=== PATIENT | female | born 1985 | race Hispanic/Latino ===

== ENCOUNTER 2017-02-23 07:16 | Emergency (ER) | payer OTHER, SELFPAY ==
--- NOTE | 2017-02-23 08:05 | EDM.PDOC ---
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 Pain tends to be quite colicky. She awoke from sleep around 0500 hrs. this morning with the pain. Associated nausea without any vomiting. No fever or chills. Denies any genitourinary complaints She is been able to drink fluids. Denies any diarrhea. No real problems with constipation. Last normal menstrual period was estimated to be around the or 16january. She does not believe she could be . Previous abdominal surgeries that of a appendectomy. Pain tends to radiate across her lower abdomen. It also is felt in both lower aspects of her back. She states similar type pain when she had her menstrual cycle last. Onset: Today Onset Date: 02/23/17 Onset Time: 05:00 Duration: Hour(s): Location: Reports: Abdomen Quality: Reports: Sharp, Stabbing Severity: Moderate Improves with: Reports: None Worsens with: Reports: None Context: Denies: Activity, Exercise, Lifting, Sick Contact, Trauma, Other Associated Symptoms: Reports: Nausea/Vomiting. 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: - Past Surgical History GI Surgical History: Reports: Appendectomy Social & Family History - Tobacco Use Smoking Status *Q: Never Smoker - Caffeine Use Caffeine Use: Reports: None - Recreational Drug Use Recreational Drug Use: No - Living Situation & Occupation Living situation: Reports: ED ROS GENERAL - Review of Systems Review Of Systems: See Below Constitutional: Reports: No Symptoms HEENT: Reports: No Symptoms Respiratory: Reports: No Symptoms Cardiovascular: Reports: No Symptoms Endocrine: Reports: No Symptoms GI/Abdominal: Reports: No Symptoms : Reports: No Symptoms Musculoskeletal: Reports: No Symptoms Skin: Reports: No Symptoms Neurological: Reports: No Symptoms Psychiatric: Reports: No Symptoms Hematologic/Lymphatic: Reports: No Symptoms Immunologic: Reports: No Symptoms ED EXAM, GI/ABD - Physical Exam Exam: See Below Exam Limited By: Language Barrier General Appearance: Alert, WD/WN, Mild Distress Eyes: Bilateral: Normal Appearance (No jaundice.) Respiratory/Chest: No Respiratory Distress, Lungs Clear, Normal Breath Sounds Cardiovascular: Normal Peripheral Pulses, Regular Rate, Rhythm, No Edema, No Gallop, No Murmur GI/Abdominal Exam: Soft, Non-Tender, No Organomegaly, No Distention, No Abnormal Bruit, No Mass, Pelvis Stable, Abnormal Bowel Sounds (Hyperactive bowel sounds in all 4 quadrants. They are almost continuous.) Back Exam: Normal Inspection, Full Range of Motion. No: CVA Tenderness (L), CVA Tenderness (R) Extremities: Normal Inspection, Normal Range of Motion, Non-Tender, No Pedal Edema Neurological: Alert, Oriented, CN II-XII Intact, Normal Cognition Psychiatric: Normal Affect, Normal Mood Skin Exam: Warm, Dry, Intact, Normal Color, No Rash Course - Vital Signs Last Recorded V/S: Last Vital Signs Temp 36.6 C 02/23/17 07:30 Pulse 84 02/23/17 07:30 Resp 15 02/23/17 07:30 BP 99/68 02/23/17 07:30 Pulse Ox 100 02/23/17 07:30 - Orders/Labs/Meds Orders: Active Orders 24 hr Category Date Time Status Abdomen 1V Flat [CR] Stat Exams 02/23/17 07:57 Taken Magnesium Citrate [Citrate of Magnesia] Med 02/23/17 08:49 Once 210 ml PO ONETIME ONE Labs: Laboratory Tests 02/23/17 02/23/17 Range/Units 07:30 07:30 Urine Color Light yellow (Yellow) Urine Appearance Clear (Clear) Urine pH 6.0 (5.0-8.0) Ur Specific [place] 1.015 (1.005-1.030) Urine Protein Negative (Negative) Urine Glucose (UA) Negative (Negative) Urine Ketones Negative (Negative) Urine Occult Blood Trace-lysed H (Negative) Urine Nitrite Negative (Negative) Urine Bilirubin Negative (Negative) Urine Urobilinogen 0.2 (0.2-1.0) Ur Leukocyte Esterase Negative (Negative) Urine RBC 0-5 (0-5) /hpf Urine WBC 0-5 (0-5) /hpf Ur Epithelial Cells 0-5 (0-5) /hpf Urine Bacteria Rare (FEW) /hpf Urine Mucus Few (FEW) /hpf Urine HCG, Qual Negative (NEGATIVE) - Radiology Interpretation Free Text/Narrative:: 31-year-old female presents the ED with acute onset of periumbilical and lower abdominal pain radiating to her lower back bilaterally. Pain is strongly and colicky. On examination soft abdomen with no peritonitis. Active bowel sounds in all 4 quadrants. Palpable right lower hemicolon. Plan KUB and urinalysis and urine when she test to be done. - Re-Assessments/Exams Free Text/Narrative Re-Assessment/Exam: 02/23/17 08:31 urinalysis shows trace of lysed RBCs. Urinalysis is negative for test. KUB to be done. 02/23/17 08:50 KUB reveals increased stool throughout both the right and left hemicolon's. This is compatible with constipation. There is a small amount of air in the small bowel central abdomen as well. No bowel obstruction. Treatment is therefore Citroma 7 ounces by mouth mixed with 5 ounces of juice of choice. This should provide bowel cleanse. If not markedly improved after bowel cleanse Departure - Departure Time of Disposition: 08:51 Disposition: Home, Self-Care 01 Condition: Fair Clinical Impression: Constipation by delayed colonic transit Abdominal pain Qualifiers: Abdominal location: periumbilical Qualified Code(s): R10.33 - Periumbilical pain - Discharge Information Referrals: PCP,None [Primary Care Provider] - Forms: ED Department Discharge Additional Instructions: Evaluation in the emergency department today in regards to sudden onset of severe generalized abdominal pain but mostly lower and periumbilical. Examination reveals a benign abdomen with no signs of anything serious. Bowel sounds were very active in all 4 quadrants. Urinalysis done is normal. X-ray of the abdomen shows increased stool throughout the right and left hemicolon compatible with constipation. Treatment is therefore for Citroma 7 ounces mixed with 5 ounces of juice of choice taken once orally. This usually starts to work in 1-2 hours and will usually make the bowels move for 5 times sometimes ending and diarrhea. This should provide complete relief of abdominal pain. If the pain is not improved after bowel cleanse or worsens in anyway return to the ED. - My Orders Last 24 Hours: My Active Orders 02/23/17 07:57 Abdomen 1V Flat [CR] Stat 02/23/17 08:49 Magnesium Citrate [Citrate of Magnesia] 210 ml PO ONETIME ONE - Assessment/Plan Last 24 Hours: My Active Orders 02/23/17 07:57 Abdomen 1V Flat [CR] Stat 02/23/17 08:49 Magnesium Citrate [Citrate of Magnesia] 210 ml PO ONETIME ONE
[2017-02-23] MEDS ORDERED: Magnesium Citrate Solution 296 ML Bottle PO ONE (08:49)
--- NOTE | 2017-02-24 07:53 | CR ---
Abdomen: Supine view of the abdomen was obtained. Slightly prominent loop of air filled bowel identified within the mid abdomen most likely within a loop of sigmoid colon as an incidental note. Bowel gas is otherwise unremarkable. No abnormal calcifications or soft tissue abnormality seen. Bony structures are unremarkable. Impression: 1. Slightly prominent loop of gas filled bowel most likely representing loop of sigmoid colon within the mid abdomen which is felt to be incidental at this time. 2. Supine abdominal x-ray is otherwise unremarkable. Diagnostic code #2
== END 2017-02-23 09:20 | disposition home or self-care (01) ==
LOC: JD.ED 07:16
DX: K59.01 Slow transit constipation (principal)
CPT/HCPCS: 74000; 81001; 81025; 99284; A9270

== ENCOUNTER 2017-02-24 04:08 | Emergency (ER) | payer OTHER, SELFPAY ==
--- NOTE | 2017-02-24 04:27 | EDM.PDOC ---
ED HPI GENERAL MEDICAL PROBLEM - General Chief Complaint: Abdominal Pain Stated Complaint: ABDOMINAL PAIN WAS HERE YESTERDAY GETTING WORSE Time Seen by Provider: 02/24/17 04:26 - History of Present Illness INITIAL COMMENTS - FREE TEXT/NARRATIVE: 31-year-old female returns to the emergency room with recurrent worsening abdominal pain. Patient was seen here yesterday treated for constipation she drank a bottle of mag citrate around 10:00 yesterday morning had multiple bowel movements after about 5:00 this last evening but this evening the patient is had significant discomfort. She's developed nausea and vomiting associated with this. She has not had any fevers or chills. Past medical history is unremarkable she has had appendectomy in the past this was done in [place] at age 15. 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: - Past Surgical History GI Surgical History: Reports: Appendectomy Social & Family History - Tobacco Use Smoking Status *Q: Never Smoker - Caffeine Use Caffeine Use: Reports: None - Recreational Drug Use Recreational Drug Use: No - Living Situation & Occupation Living situation: Reports: ED ROS GENERAL - Review of Systems Review Of Systems: See Below Constitutional: Reports: No Symptoms HEENT: Reports: No Symptoms Respiratory: Reports: No Symptoms Cardiovascular: Reports: No Symptoms GI/Abdominal: Reports: Abdominal Pain, Constipation, Nausea, Vomiting : Reports: No Symptoms ED EXAM, GI/ABD - Physical Exam Exam: See Below Exam Limited By: No Limitations General Appearance: Alert, Mild Distress (From the discomfort) Head: Atraumatic, Normocephalic Neck: Normal Inspection, Supple, Non-Tender, Full Range of Motion. No: Lymphadenopathy (L), Lymphadenopathy (R) Respiratory/Chest: No Respiratory Distress, Lungs Clear, Normal Breath Sounds Cardiovascular: Regular Rate, Rhythm, No Edema, No Murmur GI/Abdominal Exam: Normal Bowel Sounds, Soft, Other (Significant left-sided abdominal discomfort no rebound or guarding noted no distention) Back Exam: Normal Inspection. No: CVA Tenderness (L), CVA Tenderness (R) Extremities: Normal Inspection, No Pedal Edema Course - Vital Signs Last Recorded V/S: Last Vital Signs Temp 36.2 C 02/24/17 04:14 Pulse 81 02/24/17 04:14 Resp 18 02/24/17 04:14 BP 102/47 L 02/24/17 04:14 Pulse Ox 100 02/24/17 04:14 - Orders/Labs/Meds Orders: Active Orders 24 hr Category Date Time Status Abdomen 2V AP Flat Upright [CR] Stat Exams 02/24/17 04:46 Taken CBC WITH MANUAL DIFF [HEME] Stat Lab 02/24/17 05:10 Results Lactated Ringers [Ringers, Lactated] 1,000 ml Med 02/24/17 05:15 Active IV ASDIRECTED Medication Orders Lactated Ringer's (Ringers, Lactated) 1,000 mls @ 250 mls/hr IV ASDIRECTED UZMA Last Admin: 02/24/17 05:25 Dose: 250 mls/hr Labs: Laboratory Tests 02/24/17 02/24/17 02/24/17 Range/Units 05:10 05:10 05:14 WBC 8.49 (3.98-10.04) K/mm3 RBC 4.26 (3.98-5.22) M/mm3 Hgb 11.6 (11.2-15.7) gm/L Hct 35.4 (34.1-44.9) % MCV 83.1 (79.4-94.8) fl MCH 27.2 (25.6-32.2) pg MCHC 32.8 (32.2-35.5) g/dl RDW Std Deviation 45.8 (36.4-46.3) fL Plt Count 246 (182-369) K/mm3 MPV 10.2 (9.4-12.3) fl Sodium 137 (136-145) mEq/L Potassium 3.9 (3.5-5.1) mEq/L Chloride 105 (98-107) mEq/L Carbon Dioxide 26 (21-32) mEq/L Anion Gap 9.9 (5-15) BUN 10 (7-18) mg/dL Creatinine 0.7 (0.55-1.02) mg/dL Est Cr Clr Drug Dosing 94.19 mL/min Estimated GFR (MDRD) > 60 (>60) mL/min BUN/Creatinine Ratio 14.3 (14-18) Glucose 103 (74-106) mg/dL Calcium 8.9 (8.5-10.1) mg/dL Total Bilirubin 0.5 (0.2-1.0) mg/dL AST 14 L (15-37) U/L ALT 14 (14-59) U/L Alkaline Phosphatase 58 (46-116) U/L Total Protein 7.4 (6.4-8.2) g/dl Albumin 3.7 (3.4-5.0) g/dl Globulin 3.7 gm/dL Albumin/Globulin Ratio 1.0 (1-2) Lipase 108 (73-393) U/L Urine Color Yellow (Yellow) Urine Appearance Clear (Clear) Urine pH 7.0 (5.0-8.0) Ur Specific [place] 1.020 (1.005-1.030) Urine Protein Trace H (Negative) Urine Glucose (UA) Negative (Negative) Urine Ketones Negative (Negative) Urine Occult Blood 2+ H (Negative) Urine Nitrite Negative (Negative) Urine Bilirubin Negative (Negative) Urine Urobilinogen 0.2 (0.2-1.0) Ur Leukocyte Esterase Trace H (Negative) Urine RBC 10-20 H (0-5) /hpf Urine WBC 5-10 H (0-5) /hpf Ur Epithelial Cells 0-5 (0-5) /hpf Amorphous Sediment Few H (NOT SEEN) /hpf Urine Bacteria Few (FEW) /hpf Urine Mucus Few (FEW) /hpf Meds: Medications Generic Name Dose Route Start Last Admin Trade Name Freeslene PRN Reason Stop Dose Admin Lactated Ringer's 1,000 mls @ 250 mls/hr 02/24/17 05:15 02/24/17 05:25 Ringers, Lactated IV 250 mls/hr ASDIRECTED UZMA Administration Discontinued Medications Generic Name Dose Route Start Last Admin Trade Name Freq PRN Reason Stop Dose Admin Ondansetron HCl 4 mg 02/24/17 05:13 02/24/17 05:26 Zofran IVPUSH 02/24/17 05:14 4 mg ONETIME ONE Administration - Re-Assessments/Exams Free Text/Narrative Re-Assessment/Exam: 02/24/17 06:03 Evaluation of the patient's x-rays reveals no obstruction no free air under the diaphragm no other acute changes appreciated no constipation at this point in comparison with films from yesterday much of the colon contents have been evacuated. Laboratory evaluation is nonsuggestive she has microscopic hematuria. Patient was started on IV fluids and given a Zofran and after the Zofran felt much better a lot of her pain is improved. At this point no further imaging is needed patient will be discharged home with Zofran. Departure - Departure Time of Disposition: 06:07 Disposition: Home, Self-Care 01 Clinical Impression: Nausea and vomiting - Discharge Information Prescriptions: Ondansetron [Zofran ODT] 4 mg PO Q6H PRN #12 tab.dis PRN Reason: Nausea/Vomiting Referrals: PCP,None [Primary Care Provider] - Forms: ED Department Discharge Additional Instructions: Return to the emergency room with any questions problems worsening symptoms. Your given Zofran for the nausea and vomiting take one every 4-6 hours as needed. Clear liquid diet for the next 24 hours then slowly advance as tolerated. Follow-up in the Hospital clinic next week. [phone]. You will need to recheck of your urine. You have a few red blood cells in the urine and they should not be there. This could be due to your period getting ready to start - My Orders Last 24 Hours: My Active Orders 02/24/17 04:46 Abdomen 2V AP Flat Upright [CR] Stat 02/24/17 05:10 CBC WITH MANUAL DIFF [HEME] Stat 02/24/17 05:15 Lactated Ringers [Ringers, Lactated] 1,000 ml IV ASDIRECTED - Assessment/Plan Last 24 Hours: My Active Orders 02/24/17 04:46 Abdomen 2V AP Flat Upright [CR] Stat 02/24/17 05:10 CBC WITH MANUAL DIFF [HEME] Stat 02/24/17 05:15 Lactated Ringers [Ringers, Lactated] 1,000 ml IV ASDIRECTED
[2017-02-24] MEDS ORDERED: Ondansetron 4 MG/2 ML SDV IVPUSH ONE (05:13)
[2017-02-24] MEDS ORDERED: Lactated Ringers 1,000 ML IV SCH (05:15)
[2017-02-24] MEDS ORDERED: Ondansetron 4 MG Tab.DIS PO ONE (06:07)
--- NOTE | 2017-02-24 07:52 | CR ---
Abdomen: Supine and upright views of the abdomen were obtained. Comparison: Prior abdominal x-ray of 02/23/17. Bowel gas pattern is normal. No abnormal calcifications or soft tissue abnormality is seen. Slight sclerosis is noted around the left sacroiliac joint which is felt to be incidental. Impression: 1. Nothing acute is seen on two-view abdominal x-ray. Diagnostic code #2
== END 2017-02-24 06:29 | disposition home or self-care (01) ==
LOC: JD.ED 04:08
DX: R11.2 Nausea with vomiting, unspecified (principal); Z90.49 Acquired absence of other specified parts of digestive tract
CPT/HCPCS: 36415; 74020; 80053; 81001; 83690; 85025; 96361; 96374; 99284; A9270; J2405; J7120